=== PATIENT | male | born 1950 | race Caucasian/White ===

== ENCOUNTER 2017-12-11 06:05 | Inpatient (IN) ==
[~2017-12-11 06:05] MED LIST: Bacitracin 50,000 UNIT, Polymyxin B Sulfate 500,000 UNIT, Sodium Chloride IRRigation 1,... IR ONE
[2017-12-11] MEDS ORDERED: CeFAZolin Syr 2,000MG/20 ML 2,000 MG/20 ML SYRINGE IVPB ONE (06:28)
[2017-12-11] MEDS ORDERED: LIDOCAINE 1% PF 2 ML AMPUL INFILT ONE (06:28)
[2017-12-11] MEDS ORDERED: Ringers Solution, Lactated 1,000 ML IVC SCH (06:30)
--- NOTE | 2017-12-11 07:39 | Anesthesia Evaluation PreOp ---
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 History: TIA (06/2017), Other (back pain with bilateral radiculopathy) Other Medical History: Diabetes Type II Anesthesia History: No Prior Anesthetic Complications Alcohol Use: occasionally Drug use: none Medications and Allergies Amlodipine Besylate 10 mg PO DAILY 05/24/16 [History] Aspirin [Ecotrin] 325 mg PO DAILY 05/24/16 [History] Aspirin/Acetaminophen/Caffeine [Excedrin Migraine Caplet] 1 tab PO Q6H PRN 05/24 [History] Atorvastatin Calcium 80 mg PO DAILY 05/24/16 [History] Cyclobenzaprine [Flexeril] 10 mg PO TID PRN 05/24/16 [History] Docusate [Colace] 100 mg PO BID PRN 05/24/16 [History] Doxylamine Succinate [Sleep Aid] 25 mg PO HS 05/24/16 [History] Exenatide Microspheres [Bydureon] 2 mg SQ QWEEK 05/24/16 [History] Losartan Potassium [Cozaar] 100 mg PO DAILY 05/24/16 [History] Meloxicam [Mobic] 15 mg PO DAILY 05/24/16 [History] Metformin HCl [Glucophage] 1,000 mg PO BID 05/24/16 [History] Metoprolol XL (24 HR) Succ [Toprol Xl] 50 mg PO DAILY 05/24/16 [History] Multivitamin [Multi-Day Vitamins] 1 tab PO DAILY 05/24/16 [History] Omeprazole [PriLOSEC] 20 mg PO DAILY 05/24/16 [History] Oxycodone HCl/Acetaminophen [Percocet 7.5-325 mg Tablet] 1 tab PO Q6H PRN [History] Psyllium Husk [Fiber] 0.52 gm PO DAILY 05/24/16 [History] Vit C/Vit E/Lutein/Min/[place]-3 [Ocuvite Softgel] 1 tab PO DAILY 05/24/16 [ History] GuaiFENesin/Dextromethorphan [Robitussin/Dm] 10 ml PO Q6HR PRN udc 07/02/17 [Rx ] Oseltamivir [Tamiflu] 75 mg PO BID #8 capsule 07/02/17 [Rx] 3 Allergy/AdvReac Type Severity Reaction Status Date / Time No Known Allergies Allergy Verified 12/11/17 07:57 - Meds/Allergy Pre-op Review Medications Reviewed: Yes Allergies Reviewed: Yes Beta Blockers on Current Med List: Yes Anesthesia Results - Imaging EKG: report reviewed Additional studies: Echo 06/2017 Impressions: LVEF 55-60%. No pulmonary hypertension. Mildly dilated left atrium. No significant valvular dysfunction. Anesthesia Exam Vital Signs/O2 Sat, Most Current Temp Pulse Resp BP Pulse Ox 98.4 F 104 18 148/95 96 12/11/17 06:40 12/11/17 06:40 12/11/17 06:40 12/11/17 06:40 12/11/17 06:40 Height: 1.65 m Weight: 94.8 kg NPO (# of Hours): greater than 8 - HEENT Mallampati: II Teeth: Normal - MENTAL HYGIENIST MENTAL HYGIENIST Motor: Normal RUE, Normal LUE, Normal RLE, Normal LLE, Normal Face MENTAL HYGIENIST Sensory: Normal: RUE, LUE, RLE, LLE, Face - Cardiac Rhythm: Regular Murmur: None - Pulmonary Breath Sounds: bilateral Clear Respiratory Effort: Symmetrical Anesthesia Assess/Plan ASA Score: 3 Modified Gregg Scale for Level of Consciousness: Cooperative, oriented, and tranquil Anesthetic Plan: General Monitoring Plan: Standard Monitors, A-Line Recovery Plan: PACU
[2017-12-11] MEDS ORDERED: Acetaminophen IV 1,000 MG/100 ML INFUS..BTL ONE (07:41)
[2017-12-11] MEDS ORDERED: Dexmedetomidine HCl 200 MCG/50 ML MLS IVC ONE (07:42)
[2017-12-11] MEDS ORDERED: *HR* FentaNYL (PF) 100 MCG/2 ML VIAL ONE (07:47)
[2017-12-11] MEDS ORDERED: *HR* Propofol 200 MG/20 ML VIAL IVP ONE ×2 (07:48→12:09)
[2017-12-11] MEDS ORDERED: *HR* Midazolam HCl 2 MG/2 ML VIAL ONE (07:48)
[2017-12-11] MEDS ORDERED: *HR* Rocuronium Bromide 50 MG/5 ML VIAL ONE (07:50)
[2017-12-11] MEDS ORDERED: Lidocaine -MPF 2% 2 ML VIAL ONE (07:50)
[2017-12-11] MEDS ORDERED: Propofol 500 MG/50 ML INFUS..BTL ONE ×2 (07:54→10:21)
[2017-12-11] MEDS ORDERED: Famotidine 20 MG/2 ML VIAL IVP ONE (07:55)
[2017-12-11] MEDS ORDERED: Acetaminophen IV 1,000 MG/100 ML INFUS..BTL IVPB ONE (07:55)
[2017-12-11] MEDS ORDERED: *HR* OxyCODONE Immed Rel 5 MG TABLET PO ONE (07:57)
[2017-12-11] MEDS ORDERED: Gabapentin 400 MG CAPSULE PO ONE (07:57)
[2017-12-11] MEDS ORDERED: Lidocaine -MPF 4% 5 ML AMPUL ONE (07:58)
[2017-12-11] MEDS ORDERED: Gabapentin 300 MG CAPSULE PO ONE (08:10)
--- NOTE | 2017-12-11 08:17 | History & Physical Report ---
Date of Encounter: 12/11/17 Time of Encounter: 08:10 24 Hour HP Update - Instructions Instructions: If the History and Physical is less than 30 days old and was completed prior to A.M. admission and or procedure and has NOT been updated on calendar day of procedure please complete this update prior to performing procedure. - Update Patient reports changes in Medical Condition: No Changes in examination, assessment, or condition: No Changes in Medication: No Preop tests/diagnostics Reviewed: Yes Pre-Op MRSA Screen: Negative Surgery Remains Indicated: Yes Consent for Planned Operative Procedure(s) Verified: Yes - Pre-Operative Checklist Preoperative Checklist Indicated: No Prophylactic Antibiotic Ordered: Yes Home Medications Include Beta Bianca: Yes Beta Bianca Taken Today (Day of Surgery): No Beta Bianca Taken Yesterday (Day Prior to Surgery): Yes Is VTE Prophylaxis Indicated?: Yes
[2017-12-11] MEDS ORDERED: *HR* PHENYLEPHRINE 1,000 MCG/10 ML SYRINGE IVP ONE ×3 (08:42→12:51)
[2017-12-11] MEDS ORDERED: *HR* Meperidine 25 MG/ML SYRINGE IVP PRN (08:43)
[2017-12-11] MEDS ORDERED: *HR* HYDROmorphone (PF) 1 MG/ML SYRINGE IVP PRN (08:43)
[2017-12-11] MEDS ORDERED: *HR* OxyCODONE Immed Rel 5 MG TABLET PO PRN (08:43)
[2017-12-11] MEDS ORDERED: *HR* Promethazine 25 MG/ML VIAL IVP PRN (08:43)
[2017-12-11] MEDS ORDERED: Ondansetron 4 MG/2 ML VIAL IVP ONE (08:43)
[2017-12-11] MEDS ORDERED: Dexamethasone 4 MG/ML VIAL ONE (09:09)
[2017-12-11] MEDS ORDERED: Ondansetron 4 MG/2 ML VIAL ONE ×2 (09:09→12:13)
[2017-12-11] MEDS ORDERED: Ketorolac 30 MG/ML VIAL ONE (09:16)
[2017-12-11] MEDS ORDERED: *HR* Phenylephrine 10 MG/ML VIAL ONE (10:01)
[2017-12-11] MEDS ORDERED: Albumin Human 5% 25.0 GM/500 ML VIAL ONE (10:02)
[2017-12-11] MEDS ORDERED: ceFAZolin 1,000 MG in Water for inj. (sterile) 20 ML 10 ML IVP ONE (12:13)
[2017-12-11] MEDS ORDERED: Neostigmine Methylsulfate 3 MG/3 ML SYRINGE ONE (12:41)
--- NOTE | 2017-12-11 13:31 | Orthopedic Operative Note ---
Date of procedure: 12/11/17 Pre-op diagnosis: Spondylolisthesis, lumbar stenosis, lumbar radiculopathy Post-op diagnosis: same Operation/Findings: Posterior lumbar interbody fusion L2-L5: The patient successfully underwent general endotracheal anesthesia. The patient was given antibiotics prior to the start of the procedure. Compression boots and stockings were used for deep vein thrombosis prophylaxis. A Coving[place] catheter was placed. Leads for neuro monitoring were placed on the upper and lower extremities. This included the cranium. The neuro monitoring personnel confirmed there were satisfactory readings prior to the start of the procedure. The patient was turned prone on the Rasheed table. The back was prepped and draped in the usual sterile fashion. An incision was was marked and centered over the involved L2-L5 levels in the mid line. The incision was deepened through the lumbar fascia. Bovie cautery and Shields elevators were used to reflect the paraspinal musculature at the lateral extent of the transverse processes of the involved L2 , L3, L4, and L5 levels. Delores clamps were placed over the L4 and L5 spinous processes. An intraoperative lateral fluoroscopy graft was obtained. A conversation was held between the surgeon and radiologist and both confirmed we had the correct operative levels. We then placed pedicle screws in standard fashion with the aid of fluoroscopy and anatomic landmarks. Briefly a starter awl was used. A gearshift was subsequently used to enter the military pilot hole via a transpedicular route into the vertebral body. The military pilot hole was tapped with an undersized instrument, and subsequently eight 6.5 x 40 mm pedicle screws were placed bilaterally at the indicated L2, L3, L4, and L5 levels. The screws were tested with the aid of the neurologic monitoring staff via pedicle screw stimulation. All reading suggested there was no significant cortical wall breech. The screws were also evaluated fluoro- graphically and appeared to be in satisfactory position. We then turned our attention to the decompression portion of the procedure. We removed the supraspinous and interspinous ligaments and subsequently the insertion of the ligamentum flavum on the undersurface of the proximal L4 lamina was dislodged with a curette. We then removed the ligamentum flavum as well as undercut the L4-L5 facets at this L4- L5 level to decompress the lateral recesses. We also performed a L4 laminectomy. After the decompression which was over and above that which was required to place the interbody graft, the foramen and traversing roots at this L4-L5 level were found to be free and patent. We moved proximally to the L3-L4 level in again removed hypertrophied ligamentum flavum, undercut the L3-L4 facets, and performed an L3 laminectomy. We moved proximally to the L2-3 level and again removed hypertrophied ligamentum flavum, undercut the L2-3 facets, performed a partial L2 laminectomy. We also took part of the medial facets at L2-3, L3-4, and L4-5 in order to aid in the decompression. Satisfied with the decompression performed from L2-L5 we turned our attention to the placement of the interbody grafts which were planned for L4-5 and L3-4. We protected the neural elements including the thecal sac and traversing nerve root on the right at L4-5 with a dural retractor. We made an annulotomy into the L4-L5 disc space and then removed entire L4-L5 disc material using Pituitary instruments. We trialed various size grafts after the endplates were prepared for graft insertion. A 10 x 26 enter body graft fit well within the L4-L5 disc space. We obtained some bone from the right posterior superior iliac spine through us a separate incision and combined with this with the bone which we had saved from the laminectomies at L2, L3, and L4 portion of the procedure. This autograft bone was first placed in the anterior portion of the L4-L5 disc space and additional bone was placed within the interbody graft spacer. We then placed the interbody graft spacer obliquely across the L4-L5 disc space towards the midline while protecting the neural elements with a root retractor. When the graft was found to be in satisfactory position the diver assistant was removed. We then turned our attention to the L3-L4 level where again we protected the thecal sac and nerve roots with a dural retractor. We made an annulotomy into the L3-L4 disc space and removed entire disc material. We trialed various size grafts and an 8 x 26 mm interbody trial fit well within the disc space. We packed an 8 x 26 mm interbody graft with autograft bone. We placed bone anteriorly at the L3-L4 disc space and then subsequently placed and interbody graft obliquely across the L3-L4 disc space. When found to be in appropriate position the diver assistant was removed. We then copiously irrigated the wound. We then decorticated the transverse processes at L2, L3, L4, and L5 as well as the L2-3, L3-4, and L4-5 facet joints of the involved L2-L5 levels to aid in the posterolateral fusion. We placed autograft bone in the lateral gutters over these regions. We then placed rods within the screw heads of the involved L2, L3, L4, and L5 levels and first locked the distal screws and then subsequently locked the proximal screws so as to improve and reduce the spondylolisthesis previously seen. We then closed the wound in layers with 1 Vicryl for the fascia, 2-0 Vicryl. Subcutaneous tissue, and Dermabond was used for skin closure. Sterile dressings were placed over the wound. The patient was turned supine on a hospital bed and extubated. All sponge instruments and needle counts were correct at the end of the procedure. The patient tolerated the procedure well without complications. Anesthesia: JAVIER Surgeon: William Brennan Jr Was there an assistant bookkeeper present: No Estimated blood loss (cc): 1,100 Specimen: None Condition: stable Disposition: PACU
--- NOTE | 2017-12-11 14:27 | Anesthesia Evaluation Post Op ---
Date of Encounter: 12/11/17 Time of Encounter: 14:27 - Vital Signs Vital Signs: Vital Signs/O2 Sat, Most Current Temp Pulse Resp BP Pulse Ox 97.8 F 89 14 114/72 96 12/11/17 13:53 12/11/17 14:13 12/11/17 14:13 12/11/17 14:13 12/11/17 14:13 - Lungs Lungs: Clear Ascult./Percussion - Airway Airway: Non-obstructed - Cardiovascular Regular Rate - Mental Status Mental Status: Alert & Oriented, Answers Appropriately - Pain Pain Scale: 0 Pain Scale used: Numeric (1 - 10) - Nausea Vomiting Nausea Vomiting: Not Present - Hydration Hydration: Ice chips, Covington catheter - Discharge PostOp Status: Transfer Patient to floor
[2017-12-11] MEDS ORDERED: Ondansetron 4 MG/2 ML VIAL IVP PRN (14:40)
[2017-12-11] MEDS ORDERED: Naloxone 0.4 MG/ML INJ IVP PRN (14:40)
[2017-12-11] MEDS: *HR* OxyCODONE Immed Rel 5 MG TABLET PO PRN (15:03)
[2017-12-11] MEDS: CeFAZolin Pre 2,000 MG/100 ML 2,000 MG/100 ML BAG IVPB SCH (17:06)
[2017-12-11] MEDS: *HR* Metformin 500 MG TABLET PO SCH (17:08)
[2017-12-11] MEDS ORDERED: DOXYLAMINE SUCCINATE 25 MG PO SCH (21:00)
[2017-12-11] MEDS: amLODIPine 5 MG TABLET PO SCH (21:00)
[2017-12-11] MEDS: Ringers Solution, Lactated 1,000 ML IVC SCH (21:00)
[2017-12-12 02:17] LABS: Immature Granulocytes % 0.5 % (0-4); Lymphocytes # 0.7 K/mcL (0.6-4.6); Lymphocytes % 6.2 %; Mean Corpuscular Hemoglobin 29.1 pg (28.0-33.3); Mean Corpuscular Volume 88.1 fL (83.0-100.0); Monocytes # 1.3 K/mcL (0.0-1.3); Monocytes % 12.3 %; Neutrophils # 8.7 K/mcL (1.6-8.9); Platelet Count 189 K/mcL (140-400); Red Blood Count 2.61 M/mcL (4.19-5.50); Red Cell Distribution Width 14.3 % (11.5-14.5)
[2017-12-12 02:18] LABS: Hemoglobin 7.6 g/dL (12.9-16.9)
[2017-12-12 02:31] LABS: BUN/Creatinine Ratio 16 (6-26); Blood Urea Nitrogen 16 mg/dL (8-23); Carbon Dioxide 22 mEq/L (23-29); Chloride 101 mEq/L (98-107); Glucose 201 mg/dL (70-105); Osmolality,Calculated 285 (280-300); Sodium 134 mEq/L (136-145); eGFR For African Americans > 60 (> 60); eGFR For Non-African Americans > 60 (> 60)
[2017-12-12] MEDS: Acetaminophen 325 MG TABLET PO PRN ×2 (03:05→21:33)
[2017-12-12] MEDS: CeFAZolin Pre 2,000 MG/100 ML 2,000 MG/100 ML BAG IVPB SCH (03:06)
[2017-12-12] MEDS: Ringers Solution, Lactated 1,000 ML IVC SCH (07:59)
[2017-12-12] MEDS: Aspirin Enteric Coated 325 MG Tablet PO SCH (08:01)
[2017-12-12] MEDS: *HR* Metformin 500 MG TABLET PO SCH ×2 (08:01→17:52)
[2017-12-12] MEDS: Multivit/Ca/Min/Fe/FA 1 TAB TABLET PO SCH (08:02)
[2017-12-12] MEDS: Metoprolol XL (24 HR) Succ 50 MG TAB.ER.24H PO SCH (08:02)
[2017-12-12] MEDS: Psyllium 1 PACKET POWD.PACK PO SCH (08:02)
--- NOTE | 2017-12-12 08:33 | Orthopedics Progress Note ---
Date of Encounter: 12/12/17 Time of Encounter: 08:28 - Assessment and Plan (1) Status post lumbar spinal fusion Current Visit: Yes Status: Acute (2) Spondylolisthesis Current Visit: Yes Status: Chronic Qualifiers: Spinal region: lumbar Qualified Code(s): M43.16 - Spondylolisthesis, lumbar region (3) Lumbar stenosis Current Visit: Yes Status: Chronic Qualifiers: Neurogenic claudication status: unspecified Qualified Code(s): M48.061 - Spinal stenosis, lumbar region without neurogenic claudication (4) Lumbar radiculopathy Current Visit: Yes Status: Chronic (5) Postoperative anemia due to acute blood loss Current Visit: Yes Status: Acute Subjective Principal diagnosis: Spondylolisthesis, lumbar stenosis, lumbar radiculopathy Interval history: Date: 12/11/17 Pre-op diagnosis: Spondylolisthesis, lumbar stenosis, lumbar radiculopathy Operation/Findings: Posterior lumbar interbody fusion L2-L5 The patient is without complaints. One temp overnight at 100 deg. BP appears stable however pulse trending toward consistent tachycardia with decreasing O2 saturation. H/H 7.6/23 compared to 12.3/38.2 preop. Stat type and screen ordered. Dr. Brennan notified. Incision is clean dry and intact. Neurovascularly intact with regard to bilateral lower extremities. Fires all upper and lower extremity motor groups. Patient is alert however he is not oriented. He states currently that he is in [place] however he cannot tell me the day, time, or actual physical limitation of himself. Assessment: s/p PLIF L2-5 Acute postoperative anemia Tachycardia Confusion Plan: Reviewed postoperative restrictions and precautions. Patient verbalized understanding. Brace present - patient somewhat aware to apply with activity. Mobilize with therapy - they did not perform evaluation this morning secondary to significant nausea Continue analgesics as needed Discharge planning - awaiting therapy recommendations Radiographs pending RE: Tachycardia - EKG today RE: Acute postoperative anemia - transfuse 2 units PRBCs today. Recheck H/H after transfusions complete. RE: Confusion - wean down opiate pain medication, transfuse, will reassess - likely secondary to medication and anemia at this point Objective Vital signs: Vital Signs Temp Pulse Resp BP Pulse Ox 12/12/17 08:13 93 12/12/17 06:43 99.2 F 120 18 129/74 93 12/12/17 03:26 100.1 F H 122 16 111/64 93 12/11/17 23:04 99.6 F 113 17 149/63 97 12/11/17 19:25 98.6 F 105 16 143/79 91 12/11/17 18:18 97.6 F 100 18 156/77 98 12/11/17 17:00 98.5 F 95 16 122/83 98 12/11/17 16:00 93 130/83 98 12/11/17 15:37 98.7 F 89 16 126/78 97 12/11/17 15:00 97.7 F 90 16 122/73 97 12/11/17 14:28 98.8 F 90 14 118/75 98 12/11/17 14:13 89 14 114/72 96 12/11/17 14:03 89 16 117/73 98 12/11/17 13:53 97.8 F 89 16 116/69 96 12/11/17 13:43 89 14 100/79 96 12/11/17 13:33 90 16 112/59 96 12/11/17 13:23 97.8 F 87 16 101/71 100 Intake and Output 12/11/1718 12/12/17 23:59 07:59 15:59 Intake Total 100 / 100 1000 / 1000 Output Total 1900 / 1900 Balance 100 / 100 -900 / -900 Intake: IV Fluids 100 / 100 1000 / 1000 Lactated Ringers 1,000 ML @ 100 1000 / 1000 mls/hr IVC .Q10H SHAHNAZ Rx#: [id number] Ancef Premix 2,000 MG/100 ML 2, 100 / 100 000 mg In 100 ml @ 200 mls/hr IVPB Q8HR SHAHNAZ Rx#:[id number] Output: Catheter 1900 / 1900 Other: Weight 96.1 kg Blood Glucose* 257 227 Patient Weight 12/12/17 23:59 Weight 96.1 kg - Labs CBC & BMP: 12/12/17 01:45 12/12/17 01:45 Labs: Abnormal lab results RBC 2.61 M/mcL (4.19-5.50) L 12/12/17 01:45 Hgb 7.6 g/dL (12.9-16.9) L D 12/12/17 01:45 Hct 23.0 % (37.5-50.1) L 12/12/17 01:45 MPV 9.0 fL (9.4-12.4) L 12/12/17 01:45 Sodium 134 mEq/L (136-145) L 12/12/17 01:45 Carbon Dioxide 22 mEq/L (23-29) L 12/12/17 01:45 Glucose 201 mg/dL (70-105) H 12/12/17 01:45 POC Glucose 257 mg/dL (70-99) H 12/11/17 20:02 Calcium 8.0 mg/dL (8.6-10.3) L 12/12/17 01:45 - VTE Documentation of Mechanical Device: Intermittent pneumatic compression device Consult Discharge Plan - Plan Referrals: Emy James [Primary Care Provider] -
[2017-12-12] MEDS ORDERED: 0.9 % Sodium Chloride 250 ML IVC SCH (08:45)
[2017-12-12] MEDS ORDERED: VIT C PO SCH (09:00)
[2017-12-12] MEDS ORDERED: (Omega-3/Dha/Epa/Fish Oil [Fish Oil 1,000 Mg Softgel] PO SCH (09:00)
[2017-12-12] MEDS ORDERED: [UNRECOGNIZED DRUG - OTHER] PO SCH (09:00)
[2017-12-12] MEDS ORDERED: LUTEIN PO SCH (09:00)
[2017-12-12] MEDS ORDERED: VIT E PO SCH (09:00)
[2017-12-12] MEDS: *HR* HYDROcodone/Acet 5/325 mg TABLET PO PRN (10:08)
[2017-12-12] MEDS ORDERED: *HR* Dextrose 50 % in Water (Syg) 50 ML SYRINGE IVP PRN (12:03)
[2017-12-12] MEDS ORDERED: Dextrose Gel 15 GM/37.5 ML TUBE PO PRN ×2 (12:03)
[2017-12-12] MEDS ORDERED: D5% in Water 1,000 ML IVC PRN (12:03)
[2017-12-12] MEDS: Insulin LISPRO 300 UNITS/3 ML VIAL SQ SCH ×3 (12:54→22:41)
[2017-12-12] MEDS: *HR* OxyCODONE Immed Rel 5 MG TABLET PO PRN (16:30)
[2017-12-12] MEDS: amLODIPine 5 MG TABLET PO SCH (21:32)
[2017-12-13] MEDS: *HR* OxyCODONE Immed Rel 5 MG TABLET PO PRN (04:04)
[2017-12-13] MEDS: Insulin LISPRO 300 UNITS/3 ML VIAL SQ SCH ×4 (08:24→22:07)
[2017-12-13] MEDS: Acetaminophen 325 MG TABLET PO PRN (08:26)
[2017-12-13] MEDS: *HR* Metformin 500 MG TABLET PO SCH ×2 (08:27→17:03)
[2017-12-13] MEDS: Multivit/Ca/Min/Fe/FA 1 TAB TABLET PO SCH (08:27)
[2017-12-13] MEDS: Metoprolol XL (24 HR) Succ 50 MG TAB.ER.24H PO SCH (08:27)
[2017-12-13] MEDS: Aspirin Enteric Coated 325 MG Tablet PO SCH (08:27)
[2017-12-13] MEDS: Psyllium 1 PACKET POWD.PACK PO SCH (08:28)
[2017-12-13 08:44] LABS: Hematocrit 29.3 % (37.5-50.1)
[2017-12-13 08:48] LABS: Hemoglobin 9.6 g/dL (12.9-16.9)
--- NOTE | 2017-12-13 08:57 | Orthopedics Progress Note ---
Date of Encounter: 12/13/17 Time of Encounter: 08:20 - Assessment and Plan (1) Status post lumbar spinal fusion Current Visit: Yes Status: Acute (2) Spondylolisthesis Current Visit: Yes Status: Chronic Qualifiers: Spinal region: lumbar Qualified Code(s): M43.16 - Spondylolisthesis, lumbar region (3) Lumbar stenosis Current Visit: Yes Status: Chronic Qualifiers: Neurogenic claudication status: unspecified Qualified Code(s): M48.061 - Spinal stenosis, lumbar region without neurogenic claudication (4) Lumbar radiculopathy Current Visit: Yes Status: Chronic (5) Postoperative anemia due to acute blood loss Current Visit: Yes Status: Resolved Subjective Principal diagnosis: Spondylolisthesis, lumbar stenosis, lumbar radiculopathy Interval history: Date: 12/11/17 Pre-op diagnosis: Spondylolisthesis, lumbar stenosis, lumbar radiculopathy Operation/Findings: Posterior lumbar interbody fusion L2-L5 The patient is without complaints. He is acutely confused at this time. Oriented only to person. He is actively hallucinating speaking to individuals in the room or not existent. Low-grade temp noted overnight. BP appears stable however pulse continues trending toward consistent tachycardia with decreasing O2 saturation. 12/12: H/H 7.6/23 compared to 12.3/38.2 preop. Stat type and screen ordered. Dr. Brennan notified. /6: H/H 9.6/29.3 Incision is clean dry and intact. Neurovascularly intact with regard to bilateral lower extremities. Fires all upper and lower extremity motor groups. Patient is alert however he is not oriented. This acute confusion is noted to be significantly worsen following administration of oxycodone. Suspect oxycodone adverse reaction. Assessment: s/p PLIF L2-5 Acute postoperative anemia - resolved Tachycardia - ongoing, intermittent Confusion - ongoing/worsening Plan: Reviewed postoperative restrictions and precautions. Patient verbalized understanding. Brace present - patient somewhat aware to apply with activity. Mobilize with therapy Continue analgesics as needed Discharge planning - ECF - awaiting auth Radiographs pending RE: Confusion - We will discontinue this entirely and hold all narcotic pain medication for the rest of the day until confusion is resolving. We will reevaluate at lunchtime rounds. Objective Vital signs: Vital Signs Temp Pulse Resp BP Pulse Ox 12/13/17 07:26 99.7 F H 123 16 164/89 94 12/13/17 03:32 98.3 F 120 15 116/75 95 12/12/17 23:09 99.7 F H 113 17 131/76 92 12/12/17 21:31 100.7 F H 114 17 150/81 92 12/12/17 19:03 114/55 12/12/17 18:24 99.1 F 108 16 116/71 93 12/12/17 18:00 98.9 F 109 16 133/68 93 12/12/17 15:48 98.9 F 109 18 132/77 94 12/12/17 15:31 98.9 F 109 18 132/77 94 12/12/17 13:20 114 94 12/12/17 13:19 99.5 F 114 16 117/71 93 12/12/17 13:05 99.3 F 114 18 99/65 12/12/17 11:43 99.8 F H 110 18 113/64 93 Intake and Output 12/12/17 12/13/17 12/13/17 23:59 07:59 15:59 Intake Total 590 / 590 250 / 250 Output Total 800 / 800 Balance -210 / -210 250 / 250 Intake: Oral 240 / 240 250 / 250 Blood Product 350 / 350 Rbcs Leuko Poor As-1 Unit 350 / 350 [id number] Output: Urine 800 / 800 Other: Meal Dinner Percent of Meal Consumed 0% # Urine Diapers 1 Weight 93.8 kg Blood Glucose* 229 275 - Labs CBC & BMP: 12/13/17 08:04 12/12/17 01:45 Labs: Abnormal lab results RBC 2.61 M/mcL (4.19-5.50) L 12/12/17 01:45 Hgb 9.6 g/dL (12.9-16.9) L D 12/13/17 08:04 Hct 29.3 % (37.5-50.1) L 12/13/17 08:04 MPV 9.0 fL (9.4-12.4) L 12/12/17 01:45 Sodium 134 mEq/L (136-145) L 12/12/17 01:45 Carbon Dioxide 22 mEq/L (23-29) L 12/12/17 01:45 Glucose 201 mg/dL (70-105) H 12/12/17 01:45 POC Glucose 275 mg/dL (70-99) H 12/13/17 07:28 Calcium 8.0 mg/dL (8.6-10.3) L 12/12/17 01:45 - VTE Documentation of Mechanical Device: Venous foot pump, device Consult Discharge Plan - Plan Referrals: Emy James [Primary Care Provider] -
[2017-12-13] MEDS: amLODIPine 5 MG TABLET PO SCH (22:02)
[2017-12-14] MEDS: *HR* Metformin 500 MG TABLET PO SCH ×2 (08:45→17:13)
[2017-12-14] MEDS: Metoprolol XL (24 HR) Succ 50 MG TAB.ER.24H PO SCH (08:45)
[2017-12-14] MEDS: Multivit/Ca/Min/Fe/FA 1 TAB TABLET PO SCH (08:45)
[2017-12-14] MEDS: Aspirin Enteric Coated 325 MG Tablet PO SCH (08:45)
[2017-12-14] MEDS: Psyllium 1 PACKET POWD.PACK PO SCH (08:46)
[2017-12-14] MEDS: Insulin LISPRO 300 UNITS/3 ML VIAL SQ SCH ×3 (08:46→17:13)
[2017-12-14] MEDS: *HR* HYDROcodone/Acet 5/325 mg TABLET PO PRN ×2 (08:48→18:45)
--- NOTE | 2017-12-14 08:50 | Orthopedics Progress Note ---
Date of Encounter: 12/14/17 Time of Encounter: 08:48 - Assessment and Plan (1) Status post lumbar spinal fusion Current Visit: Yes Status: Acute (2) Spondylolisthesis Current Visit: Yes Status: Chronic Qualifiers: Spinal region: lumbar Qualified Code(s): M43.16 - Spondylolisthesis, lumbar region (3) Lumbar stenosis Current Visit: Yes Status: Chronic Qualifiers: Neurogenic claudication status: unspecified Qualified Code(s): M48.061 - Spinal stenosis, lumbar region without neurogenic claudication (4) Lumbar radiculopathy Current Visit: Yes Status: Chronic (5) Postoperative anemia due to acute blood loss Current Visit: Yes Status: Resolved Subjective Principal diagnosis: Spondylolisthesis, lumbar stenosis, lumbar radiculopathy Interval history: Date: 12/11/17 Pre-op diagnosis: Spondylolisthesis, lumbar stenosis, lumbar radiculopathy Operation/Findings: Posterior lumbar interbody fusion L2-L5 The patient is without complaints. He is at his baseline Re: Mental status. He is alert and oriented to person and place. He continues to arrange on tachycardic side regarding his heart rate. His blood pressures also been up some. We will obtain an EKG to evaluate. 12/12: H/H 7.6 compared to 12.3/38.2 preop. Stat type and screen ordered. Dr. Brennan notified. 2 units transfused. 6: H/H 9.6/29.3 12/14: repeat H/H pending Incision is clean dry and intact. Neurovascularly intact with regard to bilateral lower extremities. Fires all upper and lower extremity motor groups. Patient is alert however he is not oriented. This acute confusion is noted to be significantly worsen following administration of oxycodone. Suspect oxycodone adverse reaction. Assessment: s/p PLIF L2-5 Acute postoperative anemia Tachycardia - EKG 12/14 to evaluate Confusion - resolved with discontinuation of Oxycodone Plan: Reviewed postoperative restrictions and precautions. Patient verbalized understanding. Brace present - patient somewhat aware to apply with activity. Mobilize with therapy Continue analgesics as needed Discharge planning - ECF today pending EKG and repeat H/H and lumbar films Radiographs pending Objective Vital signs: Vital Signs Temp Pulse Resp BP Pulse Ox 12/14/17 07:10 99.6 F 123 18 148/78 96 12/14/17 04:02 99.5 F 118 18 160/91 96 12/14/17 00:02 97.1 F L 116 16 154/82 93 12/13/17 18:35 99.6 F 105 16 147/84 97 12/13/17 16:24 100.6 F H 109 18 126/71 94 12/13/17 11:33 97.8 F 110 16 122/74 94 Intake and Output 12/13/17 12/14/17 12/14/17 23:59 07:59 15:59 Intake Total 100 / 100 Balance 100 / 100 Intake: Oral 100 / 100 Other: # Voids 1 Blood Glucose* 219 199 - Labs CBC & BMP: 12/13/17 08:04 12/12/17 01:45 Labs: Abnormal lab results RBC 2.61 M/mcL (4.19-5.50) L 12/12/17 01:45 Hgb 9.6 g/dL (12.9-16.9) L D 12/13/17 08:04 Hct 29.3 % (37.5-50.1) L 12/13/17 08:04 MPV 9.0 fL (9.4-12.4) L 12/12/17 01:45 Sodium 134 mEq/L (136-145) L 12/12/17 01:45 Carbon Dioxide 22 mEq/L (23-29) L 12/12/17 01:45 Glucose 201 mg/dL (70-105) H 12/12/17 01:45 POC Glucose 275 mg/dL (70-99) H 12/13/17 07:28 Calcium 8.0 mg/dL (8.6-10.3) L 12/12/17 01:45 - VTE Documentation of Mechanical Device: Intermittent pneumatic compression device Consult Discharge Plan - Plan Referrals: Emy James [Primary Care Provider] -
[2017-12-14 10:07] LABS: Hematocrit 28.3 % (37.5-50.1); Hemoglobin 9.4 g/dL (12.9-16.9)
[2017-12-14] MEDS ORDERED: Isovue-370 500 ML INFUS..BTL IV ONE (13:23)
[2017-12-14 13:29] LABS: BUN/Creatinine Ratio 14 (6-26); Blood Urea Nitrogen 11 mg/dL (8-23); Calcium 8.8 mg/dL (8.6-10.3); Carbon Dioxide 25 mEq/L (23-29); Chloride 97 mEq/L (98-107); Glucose 250 mg/dL (70-105); Osmolality,Calculated 278 (280-300); Potassium 4.1 mEq/L (3.5-5.1); Sodium 130 mEq/L (136-145); eGFR For African Americans > 60 (> 60); eGFR For Non-African Americans > 60 (> 60)
[2017-12-14] MEDS ORDERED: 0.9 % Sodium Chloride 3,000 ML IVC ONE (17:32)
--- NOTE | 2017-12-14 17:36 | Event Note ---
Date of Encounter: 12/14/17 Time of Encounter: 17:[address] negative EKG unremarkable Continues to trend hypertensive and tachycardic. Patient noted to be hyponatremic. suspect dehydration as patient's awareness continues to be compromised regarding encouraging PO hydration. Bolus ordered.
[2017-12-14] MEDS ORDERED: 0.9 % Sodium Chloride 1,000 ML IVC ONE (17:43)
[2017-12-14] MEDS ORDERED: Insulin LISPRO 300 UNITS/3 ML VIAL SQ SCH (18:16)
[2017-12-14] MEDS: Acetaminophen 325 MG TABLET PO PRN (21:33)
[2017-12-14] MEDS: amLODIPine 5 MG TABLET PO SCH (21:34)
[2017-12-14 22:40] LABS: BUN/Creatinine Ratio 17 (6-26); Blood Urea Nitrogen 13 mg/dL (8-23); Calcium 8.5 mg/dL (8.6-10.3); Carbon Dioxide 24 mEq/L (23-29); Chloride 98 mEq/L (98-107); Glucose 237 mg/dL (70-105); Osmolality,Calculated 278 (280-300); Potassium 3.8 mEq/L (3.5-5.1); Sodium 130 mEq/L (136-145); eGFR For African Americans > 60 (> 60); eGFR For Non-African Americans > 60 (> 60)
--- NOTE | 2017-12-15 08:05 | Discharge Summary ---
Date of Encounter: 12/15/17 Time of Encounter: 08:00 - Discharge Diagnosis (1) Status post lumbar spinal fusion Priority: Primary Status: Acute (2) Spondylolisthesis Priority: Primary Status: Chronic Qualifiers: Spinal region: lumbar Qualified Code(s): M43.16 - Spondylolisthesis, lumbar region (3) Lumbar stenosis Priority: Primary Status: Chronic Qualifiers: Neurogenic claudication status: unspecified Qualified Code(s): M48.061 - Spinal stenosis, lumbar region without neurogenic claudication (4) Lumbar radiculopathy Priority: Primary Status: Chronic (5) Postoperative anemia due to acute blood loss Priority: Secondary Status: Resolved (6) Postoperative confusion Priority: Secondary Status: Resolved - Hospital Course Hospital course: Mr. Eason is a 67 year old male status post Date of procedure: 12/11/17 Pre-op diagnosis: Spondylolisthesis, lumbar stenosis, lumbar radiculopathy Post-op diagnosis: same Operation/Findings: Posterior lumbar interbody fusion L2-L5 The patient's postoperative course was complicated by acute confusion immediately postoperative continuing for possibly 2 days. This confusion improved some after patient's postoperative anemia was resolved with blood transfusion. It was then noted that he continued to have confusion acutely after administration of oxycodone therefore this was discontinued and patient's confusion resolved. There was some question as to patient's return to baseline mental status therefore head CT was ordered which showed no acute changes. Patient's states that as of discharge he is back to his baseline mental status which requires significant cuing for self-care and awareness. Progressed from intravenous analgesic needs to oral analgesic needs only. Remained neurovascularly intact and mobilized satisfactorily. All intraoperative and/or postoperative radiographic studies were satisfactory. Patient is discharged with plan for inpatient rehabilitation and follow-up in 2 weeks post discharge on analgesic medication and patient's home medications. Patient is to continue his home medication of Percocet that is prescribed by his PCP which is tolerated well. It is suspected though that since patient has not received this for the approximately past 3 days that some of his vital signs changes may be related to withdrawal from this medication. We will encourage slow and cautious reintroduction while in rehabilitation. Patient's aware of this. - Time Spent with Patient Total time spent providing and/or coordinating discharge services: - Discharge Medications Prescriptions: OxyCODONE/APAP 7.5/325 [Percocet 7.5/325 MG] 1 each PO Q6HR PRN 7 Days #28 tablet PRN Reason: Pain Home Medications: Amlodipine Besylate 10 mg PO HS 05/24/16 [History] Aspirin [Ecotrin] 325 mg PO DAILY 05/24/16 [History] Atorvastatin Calcium 80 mg PO HS 05/24/16 [History] Cyclobenzaprine [Flexeril] 10 mg PO TID PRN 05/24/16 [History] Docusate [Colace] 100 mg PO BID PRN 05/24/16 [History] Doxylamine Succinate [Sleep Aid] 25 mg PO HS 05/24/16 [History] Exenatide Microspheres [Bydureon] 2 mg SQ SA 05/24/16 [History] Losartan Potassium [Cozaar] 100 mg PO DAILY 05/24/16 [History] Meloxicam [Mobic] 15 mg PO DAILY 05/24/16 [History] Metformin HCl [Glucophage] 1,000 mg PO BID 05/24/16 [History] Metoprolol XL (24 HR) Succ [Toprol Xl] 50 mg PO DAILY 05/24/16 [History] Multivitamin [Multi-Day Vitamins] 1 tab PO DAILY 05/24/16 [History] Omeprazole [PriLOSEC] 20 mg PO DAILY 05/24/16 [History] Oxycodone HCl/Acetaminophen [Percocet 7.5-325 mg Tablet] 1 tab PO Q6H PRN [History] Psyllium Husk [Fiber] 0.52 gm PO DAILY 05/24/16 [History] Vit C/Vit E/Lutein/Min/Tamms-3 [Ocuvite Softgel] 1 tab PO DAILY 05/24/16 [ History] Amitriptyline [Elavil] 25 mg PO HS 12/11/17 [History] Calcium Carbonate [Calcium] 1,200 mg PO DAILY 12/11/17 [History] Gabapentin [Neurontin] 800 mg PO TID 12/11/17 [History] Tamms-3/Dha/Epa/Fish Oil [Fish Oil 1,000 mg Softgel] 1 cap PO DAILY 12/11/17 [ History] OxyCODONE/APAP 7.5/325 [Percocet 7.5/325 MG] 1 each PO Q6HR PRN 7 Days #28 tablet 12/14/17 [Rx] Allergies/Adverse Reactions: 3 Allergy/AdvReac Type Severity Reaction Status Date / Time No Known Allergies Allergy Verified 12/11/17 07:57 Date of admission: 12/11/17 14:33 Primary care physician: Emy James Consults: 12/11/17 14:40 Consult to Occupational Therapy [CONS] Routine Comment: Evaluate, develop and implement POC Reason for Consult: Postoperative rehabilitation Does patient have active BEDREST order?: No Is patient medically & hemodynamically stable?: Yes Patient assessed for mobility or mobilized this visit?: No Consult to Physical Therapy [CONS] Routine Comment: Evaluate, develop and implement POC Reason for Consult: Postoperative rehabilitation Does patient have active BEDREST order?: No Is patient medically & hemodynamically stable?: Yes Patient assessed for mobility or mobilized this visit?: No Consult to Cnc Lathe Machine Operator [CONS] Routine Reason for SW Consult: Postoperative rehabilitation Consult to Spine Navigator [CONS] [CONS] Routine 12/11/17 14:54 Consult to Nutrition [CONS] Routine Comment: Consulting Provider: NUTRITION Reason for Dietary Consult: MST Score - VTE Documentation of Mechanical Device: Intermittent pneumatic compression device Labs on day of discharge: Labs from last 24 hours 12/14/17 12/14/17 12/14/17 22:00 19:38 16:03 Hgb Hct Sodium 130 L Potassium 3.8 Chloride 98 Carbon Dioxide 24 BUN 13 Creatinine 0.77 Est GFR ( Amer) > 60 Est GFR (Non-Af Amer) > 60 BUN/Creatinine Ratio 17 Glucose 237 H POC Glucose 265 H 328 H Calculated Osmolality 278 L Calcium 8.5 L 12/14/17 12/14/17 12/14/17 12:25 11:15 09:31 Hgb 9.4 L Hct 28.3 L Sodium 130 L Potassium 4.1 Chloride 97 L Carbon Dioxide 25 BUN 11 Creatinine 0.81 Est GFR ( Amer) > 60 Est GFR (Non-Af Amer) > 60 BUN/Creatinine Ratio 14 Glucose 250 H POC Glucose 285 H Calculated Osmolality 278 L Calcium 8.8 12/14/17 12/13/17 12/13/17 07:11 21:36 16:26 Hgb Hct Sodium Potassium Chloride Carbon Dioxide BUN Creatinine Est GFR ( Amer) Est GFR (Non-Af Amer) BUN/Creatinine Ratio Glucose POC Glucose 199 H 219 H 322 H Calculated Osmolality Calcium 06/06/18 11:35 Hgb Hct Sodium Potassium Chloride Carbon Dioxide BUN Creatinine Est GFR ( Amer) Est GFR (Non-Af Amer) BUN/Creatinine Ratio Glucose POC Glucose 288 H Calculated Osmolality Calcium - Impressions ITS Impressions Fluoroscopy 12/11/17 00:00 IMPRESSION: Intraprocedural fluoroscopic spot images as above. See separate procedure report for more information. D/ / Kendall Enriquez MD / Kendall Enriquez MD Interpreting Provider: Kendall Enriquez MD Lumbar Spine X-Ray 12/11/17 00:00 IMPRESSION: Intraprocedural fluoroscopic spot images as above. See separate procedure report for more information. D/ / Kendall Enriquez MD / Kendall Enriquez MD Interpreting Provider: Kendall Enriquez MD Lumbar Spine X-Ray 12/14/17 08:47 IMPRESSION: Stable changes of posterior lumbar fusion at L2 through L5 with no evidence of hardware complication. No acute osseous abnormality. Multilevel degenerative disc disease and facet arthropathy is again noted. D/ / Jonathan Haley MD / Jonathan Haley MD Interpreting Provider: Jonathan Haley MD Head CT 12/14/17 13:23 IMPRESSION: Motion artifact degrades the images. There are mild chronic small vessel ischemic changes. No acute brain parenchymal abnormality. D/ / 12/14/2017 14:22:45 Jody Guerra MD / hadley Interpreting Provider: Jody Guerra MD - Patient Status Disposition: Transfer Inpatient Rehab Fac Condition: Fair Functional capacity at discharge: uses cane/walker Overall status at discharge: patient is progressing back to baseline - Discharge Instructions Follow Up With: Emy James [Primary Care Provider] - - Diet and Activity Activity: as per physical therapy Diet: advance to your usual diet
[2017-12-15] MEDS: Acetaminophen 325 MG TABLET PO PRN (09:28)
[2017-12-15] MEDS: Multivit/Ca/Min/Fe/FA 1 TAB TABLET PO SCH (09:28)
[2017-12-15] MEDS: Aspirin Enteric Coated 325 MG Tablet PO SCH (09:28)
[2017-12-15] MEDS: Metoprolol XL (24 HR) Succ 50 MG TAB.ER.24H PO SCH (09:28)
[2017-12-15] MEDS: *HR* Metformin 500 MG TABLET PO SCH (09:28)
[2017-12-15] MEDS: Psyllium 1 PACKET POWD.PACK PO SCH (09:29)
[2017-12-15] MEDS: Insulin LISPRO 300 UNITS/3 ML VIAL SQ SCH ×2 (09:31→12:04)
[2017-12-15] MEDS: *HR* HYDROcodone/Acet 5/325 mg TABLET PO PRN (09:44)
[2017-12-15 11:40] VITALS: BP 116/76
--- NOTE | 2017-12-15 17:19 | Electrocardiograph Report ---
[place] [id number] Test Date: 2017-12-14 Pat Name: Min Eason Department: [id number] Room: [facility] Gender: M Class C Driver: SHRUTHI : [id number] Requested By: Jazmin Keyes Order Number: [id number] Reading MD: Crispin Manley Measurements Intervals Hale Rate: 119 P: 30 MN: 193 QRS: 12 QRSD: 99 T: 24 QT: 338 QTc: 409 Interpretive Statements SINUS TACHYCARDIA WITH FIRST DEGREE AV BLOCK AND FREQUENT SUPRAVENTRICULAR PREMATURE COMPLEXES Electronically Signed On 12-15-2017 17:18:18 EDT by Crispin Manley
[2017-12-16] MEDS ORDERED: (Exenatide Microspheres [Bydureon] 2 MG) SQ SCH (13:34)
== END 2017-12-15 13:18 | DRG 460 ==
LOC: SAMDAY 06:05 → 3NENU 14:33
PROVIDERS: ADMIT Orthopaedic Surgery; ATTEND Orthopaedic Surgery